=== PATIENT | male | born 1990 | race American Indian/Alaskan Native ===

== ENCOUNTER 2017-10-20 17:52 | Emergency (ER) | payer MEDICAID ==
[2017-10-20 19:00] LABS: Bilirubin,Urine NEG (Negative); Blood,Urine NEG (Negative); Color,Urine Straw (Yellow); Protein,Urine <15 mg/dL mg/dL (Negative)
[2017-10-20] MEDS ORDERED: TORADOL IM ONE (19:22)
[2017-10-20] MEDS ORDERED: LIDOCAINE VISCOUS 2% PO ONE (19:22)
[2017-10-20] MEDS ORDERED: NORCO PO ONE (19:23)
[2017-10-20 19:41] LABS: Basophils # (Auto) 0.1 K/mm3 (0.0-0.1); Basophils % (Auto) 0.6 % (0.0-1.8); Eosinophils % (Auto) 0.1 % (0.0-4.3); Hematocrit 45.6 % (35.5-45.6); Hemoglobin 15.3 gm/dl (11.8-15.2); Lymphocytes # (Auto) 1.6 K/mm3 (1.2-5.4); Lymphocytes % (Auto) 12.7 % (13.4-35.0); Mean Corpuscular HGB Conc 34 % (32-34); Mean Corpuscular Hemoglobin 30 pg (28-32); Mean Corpuscular Volume 90 fl (84-94); Monocytes # (Auto) 1.4 K/mm3 (0.0-0.8); Monocytes % (Auto) 11.6 % (0.0-7.3); Platelet Count 177 K/mm3 (140-440); Red Blood Count 5.06 M/mm3 (3.65-5.03); Red Cell Distribution Width 12.7 % (13.2-15.2)
[2017-10-20] MEDS ORDERED: BICILLIN L-A IM ONE (19:52)
[2017-10-20] MEDS ORDERED: NACL 0.9% 1000 ML 1,000 ML IV ONE (19:53)
[2017-10-20] MEDS ORDERED: DECADRON IV ONE (19:53)
[2017-10-20 19:56] LABS: Alanine Aminotransferase 11 units/L (7-56); Albumin 4.6 g/dL (3.9-5); BUN/Creatinine Ratio 9; Blood Urea Nitrogen 10 mg/dL (9-20); Calcium 9.7 mg/dL (8.4-10.2); Hemolysis Index 7; Lipase 11 units/L (13-60)
--- NOTE | 2017-10-20 20:56 | Emergency Department Report ---
Chief Complaint: Weakness Stated Complaint: COUGH/HEADACHES/ABD/KIDNEY PAIN Time Seen by Provider: 10/20/17 18:58 - HPI History of Present Illness: The patient's 27-year-old male who presents for evaluation of sore throat and generalized pain. The patient states that his shortness of throat began this morning upon awakening, has been constant since, standing in quality, severe, exacerbated with swallowing. He also complains of mild cramping abdominal pain , nausea, vomiting, diarrhea, and back pain. The patient denies headache, dyspnea, chest pain, neck stiffness, dysphagia, stridor, drooling, difficulty tolerating secretions, dysphonia, hoarseness of voice. - Exam Vital Signs: Vital Signs 10/20/17 10/20/17 17:56 19:35 Temperature 99.2 F Pulse Rate 81 Respiratory 16 18 Rate Blood Pressure 160/60 O2 Sat by Pulse 97 Oximetry MSE screening note: Focused history and physical exam performed. Due to findings the following was ordered: ED Medical Decision Making - Lab Data Result diagrams: 10/20/17 19:31 10/20/17 19:31 ED Disposition for MSE Condition: Stable Referrals: PRIMARY CARE, [Primary Care Provider] - 3-5 Days
--- NOTE | 2017-10-20 21:08 | Emergency Department Report ---
ED ENT HPI - General Chief complaint: Weakness Stated complaint: COUGH/HEADACHES/ABD/KIDNEY PAIN Time Seen by Provider: 10/20/17 18:58 Source: patient Mode of arrival: Ambulatory Limitations: No Limitations - History of Present Illness Initial comments: 27-year-old male past medical history none presents with complaint of 2 days of sore throat. Also complaining of slight increased urinary frequency. Patient speaking in full sentences. Slight nonproductive cough. Denies abdominal pain. States he does have some body aches. Denies hematuria. Denies any productive cough. States his daughter is sick with similar symptoms at home. Patient accompanied by at bedside. States increased urinary frequency has been ongoing for 1 week. 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 No trismus or drooling noted, no audible wheezing or stridor. MD complaint: sore throat Onset/Timin -: week(s) Location: throat Severity: moderate Severity scale (0 -10): 6 Quality: aching Consistency: constant Improves with: none Worsens with: swallowing - Related Data Previous Rx's Medication Instructions Recorded Last Taken Type Cephalexin [Keflex] 500 mg PO Q12HR #14 cap 10/20/17 Unknown Rx Dextromethorphan/Benzocaine 1 each PO Q4H PRN #1 box 10/20/17 Unknown Rx [Cepacol Sorethroat-Cough Audi] Ibuprofen [Motrin] 800 mg PO Q8HR PRN #30 tablet 10/20/17 Unknown Rx Allergies Allergy/AdvReac Type Severity Reaction Status Date / Time No Known Allergies Allergy Verified 10/20/17 17:55 ED Dental HPI - General Chief complaint: Weakness Stated complaint: COUGH/HEADACHES/ABD/KIDNEY PAIN Time Seen by Provider: 10/20/17 18:58 Source: patient Mode of arrival: Ambulatory Limitations: No Limitations - Related Data Previous Rx's Medication Instructions Recorded Last Taken Type Cephalexin [Keflex] 500 mg PO Q12HR #14 cap 10/20/17 Unknown Rx Dextromethorphan/Benzocaine 1 each PO Q4H PRN #1 box 10/20/17 Unknown Rx [Cepacol Sorethroat-Cough Audi] Ibuprofen [Motrin] 800 mg PO Q8HR PRN #30 tablet 10/20/17 Unknown Rx Allergies Allergy/AdvReac Type Severity Reaction Status Date / Time No Known Allergies Allergy Verified 10/20/17 17:55 ED Review of Systems ROS: Stated complaint: COUGH/HEADACHES/ABD/KIDNEY PAIN Other details as noted in HPI Constitutional: denies: chills, fever Eyes: denies: eye pain, eye discharge, vision change ENT: throat pain. denies: ear pain Respiratory: denies: cough, shortness of breath, wheezing Cardiovascular: denies: chest pain, palpitations Endocrine: no symptoms reported Gastrointestinal: denies: abdominal pain, nausea, diarrhea Genitourinary: frequency. denies: urgency, dysuria Musculoskeletal: denies: back pain, joint swelling, arthralgia Skin: denies: rash, lesions Neurological: denies: headache, weakness, paresthesias Psychiatric: denies: anxiety, depression Hematological/Lymphatic: denies: easy bleeding, easy bruising ED Past Medical Hx - Past Medical History Previous Medical History?: No - Surgical History Past Surgical History?: No - Social History Smoking Status: Current Some Day Smoker Substance Use Type: Alcohol - Medications Home Medications: Home Medications Medication Instructions Recorded Confirmed Last Taken Type Cephalexin [Keflex] 500 mg PO Q12HR #14 cap 10/20/17 Unknown Rx Dextromethorphan/Benzocaine 1 each PO Q4H PRN #1 box 10/20/17 Unknown Rx [Cepacol Sorethroat-Cough Audi] Ibuprofen [Motrin] 800 mg PO Q8HR PRN #30 tablet 10/20/17 Unknown Rx ED Physical Exam - General Limitations: No Limitations General appearance: alert, in no apparent distress - Head Head exam: Present: atraumatic, normocephalic - Eye Eye exam: Present: normal appearance, PERRL, EOMI - ENT ENT exam: Present: mucous membranes moist - Expanded ENT Exam Expanded Throat exam: Positive: tonsillar erythema, tonsillomegaly, tonsillar exudate ( bilateral tonsillar exudates erythema. No peritonsillar abscess, uvula is midline) - Neck Neck exam: Present: normal inspection - Respiratory Respiratory exam: Present: normal lung sounds bilaterally. Absent: respiratory distress - Cardiovascular Cardiovascular Exam: Present: regular rate, normal rhythm. Absent: systolic murmur, diastolic murmur, rubs, gallop - GI/Abdominal GI/Abdominal exam: Present: soft (abdomen soft nontender nondistended 4 quadrants), normal bowel sounds - Rectal Rectal exam: Present: deferred - Extremities Exam Extremities exam: Present: normal inspection - Back Exam Back exam: Present: normal inspection - Neurological Exam Neurological exam: Present: alert, oriented X3 - Psychiatric Psychiatric exam: Present: normal affect, normal mood - Skin Skin exam: Present: warm, dry, intact, normal color. Absent: rash ED Course Vital Signs 10/20/17 10/20/17 17:56 19:35 Temperature 99.2 F Pulse Rate 81 Respiratory 16 18 Rate Blood Pressure 160/60 O2 Sat by Pulse 97 Oximetry ED Medical Decision Making - Lab Data Result diagrams: 10/20/17 19:31 10/20/17 19:31 - Medical Decision Making A/P: Strep pharyngitis, urinary tract infection 1-case discussed with Dr. Lopez. Patient treated empirically for group A strep with Bicillin here in ED. Will place patient on course of 7 days of Keflex to treat UTI as patient has large leukocytes and urine and states he has had some urinary frequency 2-Motrin 800 when necessary, throat lozenges when necessary 3-vital signs stable before discharge 4-I advised patient to follow up with primary care or to return to the ED for any inability to tolerate by mouth fluid or food persistent nausea and vomiting severe fevers and chills or fevers persistently above 100.4F despite antipyretic use, severe lethargy. Patient stated he understood my instructions. I advised patient to remain well-hydrated. Critical care attestation.: If time is entered above; I have spent that time in minutes in the direct care of this critically ill patient, excluding procedure time. ED Disposition Clinical Impression: Strep throat Urinary tract infection Qualifiers: Urinary tract infection type: acute cystitis Hematuria presence: without hematuria Qualified Code(s): N30.00 - Acute cystitis without hematuria Disposition: TO HOME OR SELFCARE Is pt being admited?: No Does the pt Need Aspirin: No Condition: Stable Instructions: Urinary Tract Infection in Men (ED), Strep Throat (ED) Prescriptions: Cephalexin [Keflex] 500 mg PO Q12HR #14 cap Dextromethorphan/Benzocaine [Cepacol Sorethroat-Cough Audi] 1 each PO Q4H PRN #1 box PRN Reason: Sore Throat Ibuprofen [Motrin] 800 mg PO Q8HR PRN #30 tablet PRN Reason: Sore Throat Referrals: [facility] [Outside] - 3-5 Days Forms: Work/School Release Form(ED) Time of Disposition: 21:08
[2017-10-20 21:37] VITALS: BP 123/72
== END 2017-10-20 21:37 | disposition home or self-care (01) ==
LOC: ED 17:52
DX: J02.0 Streptococcal pharyngitis (principal); N39.0 Urinary tract infection, site not specified; F17.200 Nicotine dependence, unspecified, uncomplicated
CPT/HCPCS: 36415; 80053; 81001; 82550; 83690; 85025; 87086; 87430; 96361; 96372; 96374; 99283; J0561; J1100; J1885; J7030